=== PATIENT | female | born 1975 | race Hispanic/Latino ===

== ENCOUNTER 2018-02-28 03:29 | Emergency (ER) | payer SELFPAY ==
[2018-02-28] MEDS ORDERED: THIAMINE 200 MG/2 ML INJ ONE (04:09)
[2018-02-28] MEDS ORDERED: NA CHLORIDE 0.9% 1,000 ML ONE (04:09)
[2018-02-28] MEDS ORDERED: MULTIVITAMINS 10 ML VIAL (INJ) IV ONE (04:11)
[2018-02-28] MEDS ORDERED: FOLIC ACID 5 MG/ML VIAL ONE (04:14)
[2018-02-28 04:20] LABS: Absolute Lymphocytes (CBC) 1.4 K/uL (0.7-4.9); Absolute Monocytes 0.2 K/uL (0.1-1.3); Absolute Neutrophil 6.4 K/uL (1.8-8.0); Basophils % 0.5 % (0-1.3); Eosinophils % 1.4 % (0-4.4); Hematocrit 30.3 % (36.0-45.0); Lymphocytes % 16.9 % (15.3-44.8); MCH 18.2 pg (27.0-35.0); MCV 63.1 fL (80-100); MPV 7.9 fL (7.6-11.3); Monocytes % 2.9 % (3.3-12.3)
[2018-02-28 04:25] LABS: Protime INR 1.03
[2018-02-28 04:31] LABS: Bicarbonate 27 mEq/L (21-31); Glucose Level 118 mg/dL (65-120); Potassium 3.6 mEq/L (3.6-5.0); Sodium Level 142 mEq/L (135-145)
[2018-02-28 04:37] LABS: ALT/SGPT 13 IU/L (10-60); AST/SGOT 19 IU/L (10-42); Alkaline Phosphatase 65 IU/L (42-121); BUN Blood Urea Nitrogen 6 mg/dL (6-20); Bilirubin Direct < 0.1 mg/dL (0-0.2); Bilirubin Total 0.3 mg/dL (0.3-1.2); Protein, Total 7.6 g/dL (6.0-8.3)
[2018-02-28 04:53] LABS: Alcohol Serum/Plasma 215 mg/dl; Salicylates Level < 4.0 mg/dl (<30)
[2018-02-28 06:02] LABS: Anisocytosis 2+; Blood Morphology Comment NOTED (NOT SEEN); Hypochromasia 2+; Platelet Estimate INCR; Urine White Blood Cell Casts OK
--- NOTE | 2018-02-28 06:34 | EDPHYS ---
Physician Documentation [facility] Name: Jessie Hampton Age: 42 yrs Sex: Female : 1975 Arrival Date: 02/28/2018 Time: 03:31 Bed 17 Private MD: ED Physician Linus Tabares HPI: 02/28 03:46 This 42 yrs old Female presents to ER via EMS with complaints of Vomiting. pkl 03:46 The patient presents with decreased mental status. Onset: The symptoms/episode pkl began/occurred just prior to arrival. Possible causes: alcohol. Associated signs and symptoms: Pertinent positives: vomiting. 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 - Social history:: Smoking status: unknown. ROS: 03:46 Eyes: Negative for injury, pain, redness, and discharge, ENT: Negative for injury, pkl pain, and discharge, Neck: Negative for injury, pain, and swelling, Cardiovascular: Negative for chest pain, palpitations, and edema, Respiratory: Negative for shortness of breath, cough, wheezing, and pleuritic chest pain. 03:46 Abdomen/GI: Positive for vomiting. 03:46 Back: Negative for acute changes. 03:46 : Negative for urinary symptoms. 03:46 MS/extremity: Negative for acute changes. 03:46 Skin: Negative for rash. 03:46 Neuro: Positive for altered mental status. Exam: 03:46 Head/Face: Normocephalic, atraumatic. Eyes: Pupils equal round and reactive to light, pkl extra-ocular motions intact. Lids and lashes normal. Conjunctiva and sclera are non-icteric and not injected. Cornea within normal limits. Periorbital areas with no swelling, redness, or edema. ENT: Nares patent. No nasal discharge, no septal abnormalities noted. Tympanic membranes are normal and external auditory canals are clear. Oropharynx with no redness, swelling, or masses, exudates, or evidence of obstruction, uvula midline. Mucous membranes moist. Neck: Trachea midline, no thyromegaly or masses palpated, and no cervical lymphadenopathy. Supple, full range of motion without nuchal rigidity, or vertebral point tenderness. No Meningismus. Chest/axilla: Normal chest wall appearance and motion. Nontender with no deformity. No lesions are appreciated. Cardiovascular: Regular rate and rhythm with a normal S1 and S2. No gallops, murmurs, or rubs. Normal PMI, no JVD. No pulse deficits. Respiratory: Lungs have equal breath sounds bilaterally, clear to auscultation and percussion. No rales, rhonchi or wheezes noted. No increased work of breathing, no retractions or nasal flaring. Abdomen/GI: Soft, non-tender, with normal bowel sounds. No distension or tympany. No guarding or rebound. No evidence of tenderness throughout. Back: No spinal tenderness. No costovertebral tenderness. Full range of motion. MS/ Extremity: Pulses equal, no cyanosis. Neurovascular intact. Full, normal range of motion. 03:46 Neuro: Orientation: unable to test, the patient is clinically intoxicated, Mentation: unable to follow commands, unable to test, the patient is clinically intoxicated, Cranial nerves: unable to test, the patient is clinically intoxicated, Motor: moves all fours. Vital Signs: 03:38 BP 125 / 85; Pulse 91; Resp 16; Temp 97.5(A); Pulse Ox 100% on R/A; aa1 05:45 BP 111 / 75; Pulse 77; Resp 17 S; Pulse Ox 97% on R/A; jd3 06:30 BP 124 / 87; Pulse 81; Resp 17 S; Pulse Ox 98% on R/A; jd3 07:28 BP 143 / 91; Pulse 76; Resp 16; Pulse Ox 99% on R/A; em MDM: 03:33 Patient medically screened. pkl 06:31 Data reviewed: vital signs, nurses notes, lab test result(s), EKG, radiologic studies, pkl plain films. 02/28 03:46 Order name: Acetaminophen; Complete Time: 05:10 pkl 02/28 03:46 Order name: Basic Metabolic Panel; Complete Time: 05:10 pkl 02/28 03:46 Order name: CBC with Diff; Complete Time: 06:23 pkl 02/28 03:46 Order name: ETOH Level; Complete Time: 05:10 pkl 02/28 03:46 Order name: Hepatic Function; Complete Time: 05:10 pkl 02/28 03:46 Order name: PT-INR; Complete Time: 05:10 pkl 02/28 03:46 Order name: Ptt, Activated; Complete Time: 05:10 pkl 02/28 03:46 Order name: Salicylate; Complete Time: 05:10 pkl 02/28 03:46 Order name: Urine Drug Screen pkl 02/28 03:46 Order name: EKG; Complete Time: 03:46 pkl 02/28 04:23 Order name: CBC Smear Scan; Complete Time: 06:23 EDMS 02/28 06:34 Order name: Urine Dipstick--Ancillary (enter results) rg2 02/28 06:34 Order name: Urine --Ancillary (enter results) rg2 02/28 03:46 Order name: EKG - Nurse/Tech; Complete Time: 04:19 pkl 02/28 03:46 Order name: IV Saline Lock; Complete Time: 03:46 pkl 02/28 03:46 Order name: Labs collected and sent; Complete Time: 04:11 pkl 02/28 03:46 Order name: Urine Dipstick-Ancillary (obtain specimen); Complete Time: 06:32 pkl Administered Medications: 04:11 Drug: Banana Bag - (NS 0.9% 1000 ml, foLIC Acid 1 mg, Thiamine 100 mg, Multivitamin 1 jd3 amp) Route: IV; Rate: calculated rate; Site: left antecubital; 07:54 Follow up: IV Status: Order to discontinue infusion; IV Intake: 700ml em Disposition: 02/28/18 06:33 Discharged to Home. Impression: Altered mental status. Alcohol intoxication. - Condition is Stable. - Medication Reconciliation Form, Thank You Letter, Antibiotic Education, Prescription Opioid Use form. - Follow up: Private Physician; When: 1 - 2 days; Reason: Re-evaluation by your physician. - Problem is new. - Symptoms have improved. Signatures: Dispatcher [employer] Aurelia Andersen, RN RN aa1 Linus Tabares MD MD pkl Epifanio Perdomo, TERRITORY SERVICE REPRESENTATIVE TERRITORY SERVICE REPRESENTATIVE Xu Nevarez RN RN jd3
--- NOTE | 2018-02-28 06:34 | ER ---
Nurse's Notes [facility] Name: Jessie Hampton Age: 42 yrs Sex: Female : 1975 Arrival Date: 02/28/2018 Time: 03:31 Bed 17 Private MD: Diagnosis: Altered mental status. Alcohol intoxication Presentation: 02/28 03:34 Presenting complaint: EMS states: the were called out to a bar for a woman passed out aa1 in her vehicle with her car doors open. Upon arrival pt was sleeping in her vehicle. Admitted to drinking both liquor and beer and was trying to "sleep it off." Pt also had vomitus on clothing. Upon arrival to ED pt responds to noxious stimuli only. NAD noted. Transition of care: patient was not received from another setting of care. Onset of symptoms was February 28, 2018. Care prior to arrival: Medication(s) given: Phenergan, 12.5 mg, IV initiated. 20 GA, in the left antecubital area, Glucose check: 153. 03:34 Method Of Arrival: EMS: [facility] aa1 03:34 Acuity: SHANIA 3 aa1 Triage Assessment: 03:38 General: Appears in no apparent distress. aa1 04:18 GI: Reports EMS reports pt vomited once. 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 - Social history:: Smoking status: unknown. Screenin:17 Abuse screen: Denies threats or abuse. Nutritional screening: No deficits noted. jd3 Tuberculosis screening: No symptoms or risk factors identified. Fall Risk IV access (20 points). Ambulatory Aid- None/Bed Rest/Nurse Assist (0 pts). Total Garcias Fall Scale indicates No Risk (0-24 pts). Assessment: 03:35 General: Appears comfortable, Behavior is drowsy, Smells of alcohol. Pain: Denies pain. jd3 Neuro: Level of Consciousness is lethargic, Oriented to pt does not participate with assessment at this time, will reassess when pt is more alert. Cardiovascular: Heart tones S1 S2 present Capillary refill < 3 seconds Patient's skin is warm and dry. Respiratory: Airway is patent Respiratory effort is even, unlabored, Respiratory pattern is regular, symmetrical, Breath sounds are clear bilaterally. GI: Abdomen is round Bowel sounds present X 4 quads. Abd is soft and non tender X 4 quads. EMS reports nausea and vomiting. : No signs and/or symptoms were reported regarding the genitourinary system. EENT: No signs and/or symptoms were reported regarding the EENT system. Derm: Skin is intact, Skin is dry, Skin is normal, Skin temperature is warm. Musculoskeletal: No signs and/or symptoms reported regarding the musculoskeletal system. 05:44 Reassessment: No changes from previously documented assessment. pt resting in bed, eyes jd3 closed, even and unlabored respirations, call edwards in reach, no distress noted at this time. 06:28 General: Appears in no apparent distress. comfortable, Behavior is calm, cooperative, jd3 appropriate for age. Neuro: Level of Consciousness is awake, obeys commands, Oriented to person, place, time, situation. 06:29 Reassessment: Patient appears in no apparent distress at this time. Patient and/or jd3 family updated on plan of care and expected duration. Pain level reassessed. Patient is alert, oriented x 3, equal unlabored respirations, skin warm/dry/pink. 07:05 General: Appears in no apparent distress. comfortable, Behavior is calm, cooperative, em drowsy. Pain: Denies pain. Neuro: Level of Consciousness is awake, obeys commands, lethargic, Oriented to person, place, time, situation. Cardiovascular: Capillary refill < 3 seconds Patient's skin is warm and dry. Respiratory: Airway is patent Respiratory effort is even, unlabored, Respiratory pattern is regular, symmetrical. GI: Abdomen is round. : No signs and/or symptoms were reported regarding the genitourinary system. EENT: No signs and/or symptoms were reported regarding the EENT system. Derm: Skin is intact, Skin is pink, warm \\T\\ dry. Musculoskeletal: Range of motion: intact in all extremities. 07:05 Reassessment: Patient appears in no apparent distress at this time. family at bedside, em follows commands but lethargic. given some food and coffee. 07:07 Reassessment: Patient appears in no apparent distress at this time. I agree with above iw assessment by Epifanio Perdomo LVN. Vital Signs: 03:38 BP 125 / 85; Pulse 91; Resp 16; Temp 97.5(A); Pulse Ox 100% on R/A; aa1 05:45 BP 111 / 75; Pulse 77; Resp 17 S; Pulse Ox 97% on R/A; jd3 06:30 BP 124 / 87; Pulse 81; Resp 17 S; Pulse Ox 98% on R/A; jd3 07:28 BP 143 / 91; Pulse 76; Resp 16; Pulse Ox 99% on R/A; em ED Course: 03:31 Patient arrived in ED. am2 03:33 Linus Tabares MD is Attending Physician. pkl 03:35 Xu Veliz RN is Primary Nurse. jd3 03:37 Triage completed. aa1 03:38 Arm band placed on right wrist. Patient placed in an exam room, on a stretcher. aa1 03:40 Patient has correct armband on for positive identification. Bed in low position. Call jd3 light in reach. Side rails up X2. 04:05 Inserted saline lock: 20 gauge in right antecubital area, using aseptic technique. jd3 Blood collected. placed by band manager. 04:20 EKG done, by ED staff, reviewed by Linus Tabares MD. cb2 06:39 No provider procedures requiring assistance completed. jd3 06:59 Report given to Kailee SIMONS. jd3 07:52 IV discontinued, intact, bleeding controlled, No redness/swelling at site. Pressure em dressing applied. Administered Medications: 04:11 Drug: Banana Bag - (NS 0.9% 1000 ml, foLIC Acid 1 mg, Thiamine 100 mg, Multivitamin 1 jd3 amp) Route: IV; Rate: calculated rate; Site: left antecubital; 07:54 Follow up: IV Status: Order to discontinue infusion; IV Intake: 700ml em Intake: 07:54 IV: 700ml; Total: 700ml. em Outcome: 06:33 Discharge ordered by . pkl 07:52 Discharged to home via wheelchair. em 07:52 Condition: good 07:52 Discharge instructions given to patient, family, Instructed on discharge instructions, follow up and referral plans. Demonstrated understanding of instructions, follow-up care. 07:53 Patient left the ED. em Signatures: Aurelia Nicholson RN RN aa1 Linus Tabares MD MD pkl Epifanio Perdomo, TABLE OPERATOR TABLE OPERATOR Kailee Morris, Stefani Saba RN, Christian cb2 Davies, Jonathon, RN RN jd3 Corrections: (The following items were deleted from the chart) 04:17 04:16 Inserted saline lock: 20 gauge in right antecubital area, using aseptic jd3 technique. Blood collected. placed by OB band manager jd3 04:21 04:05 Inserted saline lock: 20 gauge in right antecubital area, using aseptic jd3 technique. Blood collected. placed by OB band manager jd3 06:29 06:28 General: Appears in no apparent distress. comfortable, Behavior is calm, jd3 cooperative, appropriate for age, jd3
--- NOTE | 2018-02-28 07:04 | EKG ---
Test Date: 2018-02-28 Test Time: 04:15:10 Converter Supervisor: CHUY MEASUREMENT RESULTS: Intervals: Rate: 75 DC: 170 QRSD: 94 QT: 394 QTc: 439 [place]: P: -12 DC: 170 QRS: 7 T: 4 INTERPRETIVE STATEMENTS: Normal sinus rhythm Normal ECG No previous ECG available for comparison Electronically Signed On 02-28-18 07:04:29 CDT by Nando Galvan
[2018-02-28 07:37] LABS: Urine Blood 3+ (NEG); Urine Glucose NEGATIVE (NEG); Urine Protein NEGATIVE (NEG); Urine Specific Gravity 1.015 (1.005-1.030)
[2018-02-28 08:20] LABS: Barbiturates NEGATIVE; Benzodiazepines NEGATIVE; Cocaine NEGATIVE; METHAMPHETAM NEGATIVE; Opiates NEGATIVE; Phencyclidine NEGATIVE; THC Cannibis NEGATIVE
== END 2018-02-28 07:53 | disposition home or self-care (01) ==
LOC: ER 03:29
DX: F10.129 Alcohol abuse with intoxication, unspecified (principal)
CPT/HCPCS: 36415; 80048; 80076; 80307; 80320; 80329; 81003; 81025; 85025; 85610; 85730; 93005; 96365; 96366; 99284; J3411; J7030